=== PATIENT | male | born 1965 | race Two or more races ===

== ENCOUNTER → 2021-01-28 08:00 | Outpatient (CLI) | payer OTHER ==
[~2021-01-28 08:00] MED LIST: ATORVASTATIN CA80 MG PO; CHILDREN'S ASPI81 MG PO; SYNJARDY 12.5-1 EACH PO; TRULIC
== END | disposition home or self-care (01) ==
LOC: ADM 01-01 11:30 → LAB 08:00 → ADM 11:30 → CIR.AMB 02-03 07:00 → EDSTATUS 02-03 11:30
PROVIDERS: ATTEND Surgery
DX: Z03.818 Encounter for observation for suspected exposure to other biological agents ruled out (principal)